=== PATIENT | female | born 1955 | race Caucasian/White ===

== ENCOUNTER 2019-12-27 07:36 | Day surgery (SDC) | payer OTHER ==
[~2019-12-27 07:36] MED LIST: Sodium Chloride 0.9% 10 ML Syringe FLUSH PRN
[2019-12-27] MEDS ORDERED: Ondansetron 4 MG/2 ML SDV IVPUSH ONE (07:37)
[2019-12-27] MEDS ORDERED: Midazolam 1 MG/ML 2 ML SDV IV ONE (07:37)
[2019-12-27] MEDS ORDERED: Propofol 200 MG/20 ML SDV IV ONE (07:37)
[2019-12-27] MEDS: Lactated Ringers 1,000 ML IV SCH (08:15)
--- NOTE | 2019-12-27 09:38 | PCM.OPNOTE ---
- General Post-Op/Procedure Note Date of Surgery/Procedure: 12/27/19 Operative Procedure(s): c scope with bx Findings: sigmoid diverticulosis rectal polyp Pre Op Diagnosis: screening Post-Op Diagnosis: rectal polyp. diverticulosis of sigmoid Anesthesia Technique: MAC Primary Surgeon: David Stevenson Anesthesia Provider: Yandy Ramirez Pathology: rectal polyp Complications: None Condition: Good Free Text/Narrative:: see dictation
[2019-12-27 10:03] VITALS: BP 125/80; PULSE 68
--- NOTE | 2019-12-27 12:08 | PREOP ---
ADMISSION DATE: 12/27/2019 CHIEF COMPLAINT: Due for colon cancer screening. HISTORY OF PRESENT ILLNESS: This 64-year-old white female is due for followup scope. She is without complaints and notes no issues. SOCIAL HISTORY: She is a former smoker, has an occasional glass of wine. PAST MEDICAL HISTORY: Significant for atypical ductal hyperplasia of the breast, chronic headaches, depression, elevated liver enzymes, history of hypothyroidism, chronic neck pain, pure hyperglycemia, and seasonal allergies. PAST SURGICAL HISTORY: Significant for suction lipectomy, bilateral tissue cooker syrup insertion and removal, augmentation mammoplasty, bilateral mastectomy, vaginal hysterectomy, cholecystectomy, appendectomy, tubal ligation, and C- section. MEDICATIONS: Include: 1. Levothyroxine 112 mcg daily. 2. Flexeril 10 mg 3 times a day. 3. Lipitor 20 mg at bedtime. 4. Losartan 50 mg daily. 5. Valtrex 500 mg, she takes by mouth twice a day for 5 days on a p.r.n. basis. 6. Prozac. 7. Flonase. 8. Senna. 9. Zyrtec. ALLERGIES: She is allergic to Ancef, Tegretol, Darvocet, Levaquin, dust mites, and tramadol. REVIEW OF SYSTEMS: Essentially unremarkable. HEENT: Unremarkable. PULMONARY/CARDIAC/GI: Unremarkable. MUSCULOSKELETAL: She does have some chronic back pain. NEUROLOGIC: No neurologic issues. PHYSICAL EXAMINATION: GENERAL: This is a well-developed, well-nourished female, appearing in no acute distress. VITAL SIGNS: Stable, afebrile. HEENT: Grossly within normal limits. LUNGS: Clear to auscultation. HEART: Regular rate and rhythm. ABDOMEN: Soft and nontender. ASSESSMENT: Need for colon cancer screening. PLAN: C-scope. Procedure and risks explained to the patient to include bleeding, perforation, and infection. The patient expresses understanding and she asked us to proceed. /[id number] /MODL
--- NOTE | 2019-12-27 12:43 | OR ---
DATE OF OPERATION: 12/27/2019 SURGEON: David Stevenson MD PROCEDURE PERFORMED: Colonoscopy with cold forceps biopsy. PREOPERATIVE DIAGNOSIS: Colon cancer screening. POSTOPERATIVE DIAGNOSIS: Sigmoid diverticulosis and rectal polyp. INDICATIONS FOR PROCEDURE: This is a 64-year-old white female, presents for routine followup colonoscopy for colon cancer screening. DESCRIPTION OF OPERATION: After an excellent IV sedation was administered, digital rectal exam was performed. No marked abnormality was noted. Flexible colonoscope was inserted and advanced to the cecum. Prep was excellent. Following findings were noted: Ascending colon, unremarkable. Transverse colon, unremarkable. Descending colon, unremarkable. Sigmoid, scattered diverticula. Rectum; at the proximal rectum, a small polypoid lesion, biopsied with cold biopsy forceps and removed in its entirety. It was submitted for pathologic exam. The patient tolerated the procedure well. Results will be sent to her by letter. /[id number] /NEFTALIL
== END 2019-12-27 10:22 | disposition home or self-care (01) ==
LOC: FB.SDS 07:36
PROVIDERS: ATTEND Surgery
DX: Z12.11 Encounter for screening for malignant neoplasm of colon (principal); K62.1 Rectal polyp; K57.30 Diverticulosis of large intestine without perforation or abscess without bleeding; F32.9 Major depressive disorder, single episode, unspecified; E03.9 Hypothyroidism, unspecified; Z79.899 Other long term (current) drug therapy; Z79.890 Hormone replacement therapy; Z87.891 Personal history of nicotine dependence; Z88.1 Allergy status to other antibiotic agents; Z88.5 Allergy status to narcotic agent; Z88.8 Allergy status to other drugs, medicaments and biological substances
CPT/HCPCS: 88305; J2250; J2405; J2704; J7120; U0002